=== PATIENT | female | born 1980 ===

== ENCOUNTER 2017-05-25 13:57 | Emergency (ER) | payer MEDICAID, OTHER ==
[2017-05-25 14:17] VITALS: TEMP 98.4
[2017-05-25 15:18] LABS: BASO # 0.02 K/mm3 (0.0-2.0); BASO % 0.2 % (0.0-3.0); EOS # 0.1 (0.0-0.7); GRAN # 5.64 (1.4-6.5); GRAN % 63.9 % (50.0-68.0); HEMOGLOBIN 14.2 g/dL (12.0-16.0); LYMPH # 2.6 (1.2-3.4); LYMPH % 29.2 % (22.0-35.0); MEAN CELL VOLUME 89.8 fl (80.0-105.0); MEAN CORPUSCULAR HEMOGLOBIN 29.6 pg (25.0-35.0); MEAN PLATELET VOLUME 11.6 fl (7.0-11.0); MONO # 0.5 (0.1-0.6); MONO % 5.7 % (1.0-6.0); RBC 4.79 10^6/uL (3.5-6.1); RED CELL DISTRIBUTION WIDTH 14.1 % (11.5-14.5); WHITE BLOOD COUNT 8.8 10^3/ul (4.5-11.0)
--- NOTE | 2017-05-25 15:18 | ED PDOC ---
Arrival/HPI - General Chief Complaint: Back Pain Time Seen by Provider: 05/25/17 14:43 Historian: Patient - History of Present Illness Narrative History of Present Illness (Text): 05/25/17 15:14 Patient is a 37 yo female presents to the Emergency Department complaining of back pain "for about a year". Patient states that she first began experiencing pain in her lower back approximately one year ago, gradual onset, worse with movement. States that over the past year she "gets the pain all the time" and for the past several months she feels pain in left mid/lower back, and is concerned this may be her kidneys. She denies abdominal pain. Pain not colickly. No chest pain or shortness of breath. No pain with deep breaths. Denies hematuria or dysuria or frequency. Denies rash. Patient denies pain radiating down legs. Pain not colicky in nature. Past Medical History - Infectious Disease Hx of Infectious Diseases: None - Psychiatric Hx Substance Use: No - Surgical History Hx Section: Yes Family/Social History Family/Social History: Unknown Family HX Smoking Status: Heavy Smoker > 10 Cigarettes Daily Hx Alcohol Use: Yes Frequency of alcohol use: Socially Hx Substance Use: No Allergies/Home Meds Allergies/Adverse Reactions: Allergies No Known Allergies Allergy (Verified 05/25/17 14:17) Review of Systems - Review of Systems Constitutional: absent: Fevers Eyes: absent: Vision Changes ENT: absent: Hearing Changes Respiratory: absent: SOB Cardiovascular: absent: Chest Pain Gastrointestinal: absent: Abdominal Pain, Diarrhea, Nausea, Vomiting, Appetite Changes Genitourinary Female: absent: Dysuria, Frequency, Hematuria, Urine Output Changes, Vaginal Bleeding, Vaginal Discharge Musculoskeletal: Back Pain. absent: Neck Pain Skin: absent: Rash Neurological: absent: Headache, Dizziness, Focal Weakness Endocrine: absent: Polyuria Hemo/Lymphatic: absent: Easy Bleeding Physical Exam Vital Signs Reviewed: Yes Vital Signs Temp Pulse Resp BP Pulse Ox 05/25/17 16:40 82 20 136/84 99 05/25/17 14:14 98.4 F 64 18 118/83 97 Temperature: Afebrile Appearance: Positive for: Well-Appearing, Non-Toxic - Systems Exam Head: Present: Atraumatic Pupils: Present: PERRL Extroacular Muscles: Present: EOMI Mouth: Present: Moist Mucous Membranes Pharnyx: No: ERYTHEMA Nose (Internal): Present: Normal Inspection Neck: Present: Normal Range of Motion. No: Meningeal Signs Respiratory/Chest: Present: Clear to Auscultation Cardiovascular: Present: Regular Rate and Rhythm Abdomen: No: Tenderness Back: Present: Normal Inspection, Paraspinal Tenderness. No: CVA Tenderness, Midline Tenderness, Pain with Leg Raise Lower Extremity: No: Edema, CALF TENDERNESS Neurological: Present: Normal Sensory Function Skin: Present: Warm Psychiatric: Present: Alert Medical Decision Making ED Course and Treatment: 05/26/17 07:25 Patient reports pain for a year. No known acute injury. No vesicular rash noted. She reports "kidney pain" although she is referring to pain in a specific region in her back. She denies hx of kidney failure, denies headaches or difficulty urinating, denies leg pain or swelling. Pain is worse with movement and palpable. NO midline deformity. Nv intact. Pain does not radiate to leg or buttock. No bowel or bladder incontinence. Pain not colicky. UA is unremarakble. BUN/Cr unremarkable. Labs reviewed with patient and limitations of just labs to diagnose disease were reviewed with patient, however she is comfortable with minimal pain currently. Given unremarkable UA, no fever, no nausea or vomiting, no dysuria, current symptoms not consistent with UTI although advised patient ua would be sent. Suspect back strain, have advised close follow-up with a primary physician, and patient will be discharged with naproxen. She has no abdominal pain or chest pain in the ED. - Lab Interpretations Lab Results: 05/25/17 15:00 05/25/17 15:00 Lab Results 05/25/17 15:00: Sodium 142, Potassium 4.2, Chloride 106, Carbon Dioxide 28, Anion Gap 12, BUN 13, Creatinine 0.9, Est GFR ( Amer) > 60, Est GFR (Non- Af Amer) > 60, Random Glucose 85, Calcium 9.6, Total Bilirubin 0.5, AST 24, ALT 36, Alkaline Phosphatase 66, Total Protein 7.6, Albumin 4.1, Globulin 3.5, Albumin/Globulin Ratio 1.2 05/25/17 15:00: Urine Color Yellow, Urine Appearance Clear, Urine pH 7.5, Ur Specific [place] 1.015, Urine Protein Negative, Urine Glucose (UA) Negative, Urine Ketones Negative, Urine Blood Negative, Urine Nitrate Negative, Urine Bilirubin Negative, Urine Urobilinogen 0.2, Ur Leukocyte Esterase Negative 05/25/17 15:00: WBC 8.8, RBC 4.79, Hgb 14.2, Hct 43.0, MCV 89.8, MCH 29.6, MCHC 33.0, RDW 14.1, Plt Count 284, MPV 11.6 H, Gran % 63.9, Lymph % (Auto) 29.2, [place] % (Auto) 5.7, Eos % (Auto) 1.0 L, Baso % (Auto) 0.2, Gran # 5.64, Lymph # ( Auto) 2.6, [place] # (Auto) 0.5, Eos # (Auto) 0.1, Baso # (Auto) 0.02 Disposition/Present on Arrival - Present on Arrival Any Indicators Present on Arrival: No History of DVT/PE: No History of Uncontrolled Diabetes: No Urinary Catheter: No History of Decub. Ulcer: No History Surgical Site Infection Following: None - Disposition Have Diagnosis and Disposition been Completed?: Yes Diagnosis: Back pain Disposition: HOME/ ROUTINE Disposition Time: 16:30 Patient Plan: Discharge Condition: GOOD Discharge Instructions (ExitCare): Upper Back Pain (DC) Additional Instructions: For any rash, fever, abdominal pain, chest pain, shortness of breath, nausea/ vomiting, urinary symptoms, persistent or worsening of symptoms, get rechecked. Take medication as directed, if there is worsening or CHANGE in any of your symptoms get rechecked. Prescriptions: Naproxen 250 mg PO BID PRN #10 tablet PRN Reason: Pain, Mild (1-3) Referrals: PCP,NO [Primary Care Provider] - Follow up with primary [facility] [place] [Outside] - Follow up with primary [facility] [Outside] - Follow up with primary Forms: [employer] (Polish)
[2017-05-25 15:22] LABS: ALB/GLOB RATIO 1.2 (1.1-1.8); ALBUMIN 4.1 g/dL (3.0-4.8); ALT/SGPT 36 U/L (7-56); AST/SGOT 24 U/L (14-36); BLOOD UREA NITROGEN 13 mg/dL (7-21); CALCIUM 9.6 mg/dL (8.4-10.5); GFR AFRICAN-AMERICAN > 60; GFR NON-AFRICAN AMERICAN > 60
[2017-05-25 15:29] LABS: PH,URINE 7.5 (4.7-8.0); URINE BILIRUBIN NEGATIVE (NEGATIVE); URINE BLOOD NEGATIVE (NEGATIVE); URINE GLUCOSE (UA) NEGATIVE (NEGATIVE); URINE LEUKOCYTE ESTERASE NEGATIVE Leu/uL (NEGATIVE); URINE PROTEIN NEGATIVE mg/dL (<30 mg/dL); URINE UROBILINOGEN 0.2 E.U./dL (<1 E.U./dL)
[2017-05-25 15:31] LABS: URINE APPEARANCE CLEAR (CLEAR); URINE COLOR YELLOW (YELLOW)
[2017-05-25 16:42] VITALS: BP 136/84; PULSE 82; RESP 20; O2SAT 99
== END 2017-05-25 16:40 | disposition home or self-care (01) ==
LOC: ED 13:57
DX: M54.6 Pain in thoracic spine (principal)

== ENCOUNTER 2017-08-15 15:07 | Emergency (ER) | payer MEDICAID, OTHER ==
[2017-08-15 15:17] VITALS: BMI 46.5
[2017-08-15 15:24] VITALS: O2SAT 99
[2017-08-15 16:01] VITALS: RESP 16
--- NOTE | 2017-08-15 16:14 | ED PDOC ---
Arrival/HPI - General Chief Complaint: Shortness Of Breath Time Seen by Provider: 08/15/17 15:15 - History of Present Illness Narrative History of Present Illness (Text): 37 y/o F c no PMHx p/w chest pain since last night. States pain began while she was lying down, midchest, nonradiating. States pain has been present all day, became worse today just shortly prior to arrival, worse when swallowing, felt short of breath and lightheaded. Currently feels better. Denies fever, chills, cough, nausea, vomiting, trauma, recent travel. Past Medical History - Infectious Disease Hx of Infectious Diseases: None - Psychiatric Hx Substance Use: No - Surgical History Hx Section: Yes Family/Social History Family/Social History: No Known Family HX Smoking Status: Heavy Smoker > 10 Cigarettes Daily Hx Alcohol Use: Yes Frequency of alcohol use: Socially Hx Substance Use: No Allergies/Home Meds Allergies/Adverse Reactions: Allergies No Known Allergies Allergy (Verified 05/25/17 14:17) Home Medications: Home Meds Medication Instructions Recorded Confirmed No Known Home Med 08/15/17 08/15/17 Review of Systems - Physician Review All systems were reviewed & negative as marked: Yes - Review of Systems Constitutional: absent: Fevers Gastrointestinal: absent: Abdominal Pain Physical Exam - Physical Exam Narrative Physical Exam (Text): Gen: NAD, obese female Head: NC/AT Eyes: No icterus. PERRL ENT: MMM. No pharyngeal erythema or exudates Neck: Supple Chest: Reproducible tenderness CV: Regular rate Lungs: CTA b/l Abd: Soft, NT Back: No tenderness Extremities: No swelling Skin: No rash Neuro: Alert, no focal deficit Vital Signs Temp Pulse Resp BP Pulse Ox 08/15/17 16:00 16 08/15/17 15:17 98.1 F 67 18 154/72 H 99 Medical Decision Making ED Course and Treatment: EKG NSR 63 bpm, no ST/T wave changes Aspirin 324mg administered en route by EMS. Will rule out ACS with cardiac enzymes in this constant chest pain that began yesterday. Suspect GI or MSK in origin. CXR no acute disease. Enzymes negative. Will discharge home, f/u PMD, return to ED for worsening pain , dyspnea, vomiting, dizziness, or any other problem. - Lab Interpretations Lab Results: 08/15/17 16:13 08/15/17 16:13 Lab Results 08/15/17 16:13: Sodium 142, Potassium 4.0, Chloride 105, Carbon Dioxide 26, Anion Gap 15, BUN 12, Creatinine 0.8, Est GFR ( Amer) > 60, Est GFR (Non- Af Amer) > 60, Random Glucose 97, Calcium 9.2, Total Bilirubin 0.3, AST 20, ALT 32, Alkaline Phosphatase 68, Total Creatine Kinase 91, Troponin I < 0.01, Total Protein 7.6, Albumin 4.1, Globulin 3.5, Albumin/Globulin Ratio 1.2 08/15/17 16:13: WBC 9.8, RBC 4.92, Hgb 14.5, Hct 42.8, MCV 87.0, MCH 29.5, MCHC 33.9, RDW 13.9, Plt Count 272, MPV 11.1 H, Gran % 66.6, Lymph % (Auto) 27.7, [place] % (Auto) 4.7, Eos % (Auto) 0.7 L, Baso % (Auto) 0.3, Gran # 6.53 H, Lymph # (Auto) 2.7, [place] # (Auto) 0.5, Eos # (Auto) 0.1, Baso # (Auto) 0.03 - RAD Interpretation Radiology Orders: 08/15/17 15:51 CHEST PORTABLE [RAD] Stat Disposition/Present on Arrival - Present on Arrival Any Indicators Present on Arrival: No History of DVT/PE: No History of Uncontrolled Diabetes: No Urinary Catheter: No History of Decub. Ulcer: No History Surgical Site Infection Following: None - Disposition Have Diagnosis and Disposition been Completed?: Yes Diagnosis: Chest pain Disposition: HOME/ ROUTINE Disposition Time: 16:54 Patient Plan: Discharge Condition: STABLE Discharge Instructions (ExitCare): Chest Pain (ED) Referrals: [facility] at [facility] [place] [Outside] - Follow up with primary Forms: [employer] (Sinhala)
[2017-08-15 16:30] LABS: ALB/GLOB RATIO 1.2 (1.1-1.8); ALBUMIN 4.1 g/dL (3.0-4.8); ALT/SGPT 32 U/L (7-56); AST/SGOT 20 U/L (14-36); BLOOD UREA NITROGEN 12 mg/dL (7-21); CALCIUM 9.2 mg/dL (8.4-10.5); GFR AFRICAN-AMERICAN > 60; GFR NON-AFRICAN AMERICAN > 60
[2017-08-15 16:40] LABS: BASO # 0.03 K/mm3 (0.0-2.0); BASO % 0.3 % (0.0-3.0); EOS # 0.1 (0.0-0.7); EOS % 0.7 % (1.5-5.0); GRAN # 6.53 (1.4-6.5); GRAN % 66.6 % (50.0-68.0); HEMOGLOBIN 14.5 g/dL (12.0-16.0); LYMPH # 2.7 (1.2-3.4); LYMPH % 27.7 % (22.0-35.0); MEAN CORPUSCULAR HEMOGLOBIN 29.5 pg (25.0-35.0); MEAN CORPUSCULAR HGB CONC 33.9 g/dl (31.0-37.0); MEAN PLATELET VOLUME 11.1 fl (7.0-11.0); MONO # 0.5 (0.1-0.6); MONO % 4.7 % (1.0-6.0); RBC 4.92 10^6/uL (3.5-6.1); RED CELL DISTRIBUTION WIDTH 13.9 % (11.5-14.5); WHITE BLOOD COUNT 9.8 10^3/ul (4.5-11.0)
[2017-08-15 16:41] LABS: TROPONIN I < 0.01 ng/mL
[2017-08-15 17:08] VITALS: BP 148/72; PULSE 75; TEMP 97.8
--- NOTE | 2017-08-15 17:08 | RAD ---
HISTORY: Chest pain. COMPARISON: No prior. FINDINGS: LUNGS: No active pulmonary disease. PLEURA: No significant pleural effusion identified, no pneumothorax apparent. CARDIOVASCULAR: Normal. OSSEOUS STRUCTURES: No significant abnormalities. VISUALIZED UPPER ABDOMEN: Normal. OTHER FINDINGS: None. IMPRESSION: No active disease.
--- NOTE | 2017-08-15 22:29 | CARD ---
APPROVED REPORT EKG Measurement Heart [id number] PA 146P22 [id number] <Conclusion> Normal sinus rhythm Normal ECG
== END 2017-08-15 17:05 | disposition home or self-care (01) ==
LOC: ED 15:07
DX: R07.9 Chest pain, unspecified (principal)

== ENCOUNTER 2017-09-20 20:42 | Emergency (ER) | payer OTHER ==
[2017-09-20 20:42] VITALS: BMI 46.5
[2017-09-20 20:51] VITALS: RESP 16; TEMP 99; O2SAT 98
[2017-09-20] MEDS ORDERED: Alum-Mag Hydrox-Simethicone Susp (30 mL) PO STA (21:03)
[2017-09-20] MEDS ORDERED: Lidocaine 2% Viscous 100 ml PO STA (21:03)
--- NOTE | 2017-09-20 21:03 | ED PDOC ---
Arrival/HPI - General Chief Complaint: ENT Problem Time Seen by Provider: 09/20/17 20:54 Historian: Patient - History of Present Illness Narrative History of Present Illness (Text): 09/20/17 20:55 37 year old female, pmh including chest pain, nkda, complaining of chest pain x 1 week with no fall or trauma. Burning pain when swallowing on the epigastric region, no reflux, no fever or chills, no coughing and no plueritic pain, no history of leg or calf pain/swelling, no exertional chest pain, no night sweat, no other medical or psychological complaints. Past Medical History - Provider Review Nursing Documentation Reviewed: Yes - Infectious Disease Hx of Infectious Diseases: None - Psychiatric Hx Psychophysiologic Disorder: No Hx Substance Use: No - Surgical History Hx Section: Yes Family/Social History - Physician Review Nursing Documentation Reviewed: Yes Family/Social History: Unknown Family HX Smoking Status: Heavy Smoker > 10 Cigarettes Daily Hx Alcohol Use: Yes Hx Substance Use: No Allergies/Home Meds Allergies/Adverse Reactions: Allergies No Known Allergies Allergy (Verified 09/20/17 20:46) Review of Systems - Review of Systems Constitutional: absent: Fatigue, Fevers Eyes: absent: Vision Changes ENT: absent: Hearing Changes Respiratory: absent: SOB, Cough Cardiovascular: Chest Pain Gastrointestinal: absent: Abdominal Pain, Diarrhea, Nausea, Vomiting Skin: absent: Rash, Pruritis Neurological: absent: Headache, Dizziness Psychiatric: absent: Anxiety, Depression Physical Exam Vital Signs Reviewed: Yes Vital Signs Temp Pulse Resp BP Pulse Ox 09/20/17 20:46 99.0 F 83 16 109/74 98 Temperature: Afebrile Blood Pressure: Normal Pulse: Regular Respiratory Rate: Normal Appearance: Positive for: Well-Appearing, Non-Toxic, Comfortable Pain Distress: Mild Mental Status: Positive for: Alert and Oriented X 3 - Systems Exam Head: Present: Atraumatic, Normocephalic Pupils: Present: PERRL Extroacular Muscles: Present: EOMI Conjunctiva: Present: Normal Mouth: Present: Moist Mucous Membranes Neck: Present: Normal Range of Motion Respiratory/Chest: Present: Clear to Auscultation, Good Air Exchange. No: Respiratory Distress, Accessory Muscle Use Cardiovascular: Present: Regular Rate and Rhythm, Normal S1, S2. No: Murmurs Abdomen: Present: Tenderness (+epigastric tenderness, negative king signs, negative mcburney point tenderness). No: Distention, Peritoneal Signs, Rebound , Guarding Back: Present: Normal Inspection Upper Extremity: Present: Normal Inspection. No: Cyanosis, Edema Lower Extremity: Present: Normal Inspection. No: Edema Neurological: Present: GCS=15, CN II-XII Intact, Speech Normal Skin: Present: Warm, Dry, Normal Color. No: Rashes Psychiatric: Present: Alert, Oriented x 3, Normal Insight, Normal Concentration Medical Decision Making ED Course and Treatment: 09/20/17 21:10 Differential: PR/STEMI vs. gastritis vs. pneumonia vs. pancreatitis vs. gerd -labs -ekg -cxr -GI cocktail -Observe and reassess 09/20/17 23:09 -Urine hcg is negative. -EKG: NSR @ 75 BPM, no ST elevation or depression, no T wave inversion. -Chest xray show Lungs: No evidence of focal air space disease/consolidation. -HEART score is 1 unlikely CAD in nature, symptoms over 24 hours and troponin is negative, ACS is unlikely -Labs show no acute findings except wbc 13.1, afebrile, likely pain and stress induced, advised the patient to repeat cbc in 1 week -Pt. feels well, resting on the bed, playing on the cellphone -All lab results discussed with the patient and differential, advised GI follow up with endoscopy and r/o h.pylori as well. -Discharge home pepcid, stay hydrated, soft food diet, avoid acidic/sour/spicy food, avoid carbonated/coffee/caffeinated drink, follow up with your own pmd and GI within 2 days for endoscopy if needed, return to the ER for any new or worsening signs or symptoms. - Lab Interpretations Lab Results: 09/20/17 21:41 09/20/17 21:41 Lab Results 09/20/17 21:41: WBC 13.1 H D, RBC 4.82, Hgb 14.3, Hct 42.0, MCV 87.1, MCH 29.7, MCHC 34.0, RDW 14.0, Plt Count 288, MPV 10.6, Gran % 61.5, Lymph % (Auto) 31.0, [place] % (Auto) 6.5 H, Eos % (Auto) 0.8 L, Baso % (Auto) 0.2, Gran # 8.05 H, Lymph # (Auto) 4.1 H, [place] # (Auto) 0.9 H, Eos # (Auto) 0.1, Baso # (Auto) 0.02 09/20/17 21:41: Sodium 141, Potassium 4.3, Chloride 104, Carbon Dioxide 26, Anion Gap 15, BUN 16, Creatinine 0.8, Est GFR ( Amer) > 60, Est GFR (Non- Af Amer) > 60, Random Glucose 80, Calcium 9.2, Total Bilirubin 0.2, AST 21, ALT 23, Alkaline Phosphatase 76, Lactate Dehydrogenase 389, Total Creatine Kinase 94 , Troponin I < 0.01, Total Protein 7.6, Albumin 4.2, Globulin 3.4, Albumin/ Globulin Ratio 1.3, Lipase 75 - RAD Interpretation Radiology Orders: 09/20/17 21:03 CHEST PORTABLE [RAD] Stat Lungs: No evidence of focal air space disease/consolidation. Pleural space: Normal. No pneumothorax. Heart/Mediastinum: Normal. No cardiomegaly. Bones/joints: Unremarkable for age. IMPRESSION: No evidence of focal air space disease/consolidation. Thank you for allowing us to participate in the care of your patient. Dictated and Authenticated by: Bonifacio Trevino MD 09/20/2017 10:32 PM Eastern Time ([place] & [place]) Management Architect: Radiologist - Medication Orders Current Medication Orders: Discontinued Medications Al Hydrox/Mg Hydrox/Simethicone (Maalox Plus 30 Ml) 30 ml PO STAT STA Stop: 09/20/17 21:04 Last Admin: 09/20/17 21:33 Dose: 30 ml Dicyclomine HCl (Bentyl) 20 mg PO STAT STA Stop: 09/20/17 21:04 Last Admin: 09/20/17 21:31 Dose: 20 mg Lidocaine HCl (Lidocaine 2% Viscous) 15 ml MM STAT STA Stop: 09/20/17 21:08 Last Admin: 09/20/17 21:33 Dose: 15 ml - PA / PROGRAM MANUFACTURING LEADER / Resident Statement /DO has reviewed & agrees with the documentation as recorded. Disposition/Present on Arrival - Present on Arrival Any Indicators Present on Arrival: No History of DVT/PE: No History of Uncontrolled Diabetes: No Urinary Catheter: No History of Decub. Ulcer: No History Surgical Site Infection Following: None - Disposition Have Diagnosis and Disposition been Completed?: Yes Diagnosis: Atypical chest pain Disposition: HOME/ ROUTINE Disposition Time: 21:13 Patient Plan: Discharge Patient Problems: Current Active Problems Problem Status Onset Atypical chest pain Acute Condition: GOOD Discharge Instructions (ExitCare): Chest Pain (ED) Additional Instructions: Discharge home pepcid, stay hydrated, soft food diet, avoid acidic/sour/spicy food, avoid carbonated/coffee/caffeinated drink, follow up with your own pmd and GI/online advertising manager within 2 days for endoscopy if needed, return to the ER for any new or worsening signs or symptoms. Prescriptions: Famotidine [Pepcid] 20 mg PO BID #20 tab Referrals: Xochilt Mendiola MD [Medical Doctor] - Follow up with primary Andrew Ag MD [Staff Provider] - Follow up with primary Forms: WORK NOTE
[2017-09-20 21:48] LABS: BASO # 0.02 K/mm3 (0.0-2.0); BASO % 0.2 % (0.0-3.0); EOS # 0.1 (0.0-0.7); EOS % 0.8 % (1.5-5.0); GRAN # 8.05 (1.4-6.5); GRAN % 61.5 % (50.0-68.0); HEMOGLOBIN 14.3 g/dL (12.0-16.0); LYMPH # 4.1 (1.2-3.4); MEAN CELL VOLUME 87.1 fl (80.0-105.0); MEAN CORPUSCULAR HEMOGLOBIN 29.7 pg (25.0-35.0); MEAN PLATELET VOLUME 10.6 fl (7.0-11.0); MONO # 0.9 (0.1-0.6); MONO % 6.5 % (1.0-6.0); RBC 4.82 10^6/uL (3.5-6.1); WHITE BLOOD COUNT 13.1 10^3/ul (4.5-11.0)
[2017-09-20 21:54] LABS: ALB/GLOB RATIO 1.3 (1.1-1.8); ALBUMIN 4.2 g/dL (3.0-4.8); ALT/SGPT 23 U/L (7-56); AST/SGOT 21 U/L (14-36); BLOOD UREA NITROGEN 16 mg/dL (7-21); CALCIUM 9.2 mg/dL (8.4-10.5); GFR AFRICAN-AMERICAN > 60; GFR NON-AFRICAN AMERICAN > 60; LIPASE 75 U/L (23-300)
[2017-09-20 22:06] LABS: TROPONIN I < 0.01 ng/mL
[2017-09-21 00:13] VITALS: BP 120/69; PULSE 80
--- NOTE | 2017-09-21 09:24 | CARD ---
APPROVED REPORT EKG Measurement Heart [id number] CT 150P30 [id number] <Conclusion> Normal sinus Low voltage QRS No change
--- NOTE | 2017-09-21 09:59 | RAD ---
HISTORY: Medical clearance. Chest pain COMPARISON: 08/15/2017 FINDINGS: LUNGS: No active pulmonary disease. PLEURA: No significant pleural effusion identified, no pneumothorax apparent. CARDIOVASCULAR: Normal. OSSEOUS STRUCTURES: No significant abnormalities. VISUALIZED UPPER ABDOMEN: Normal. OTHER FINDINGS: None. IMPRESSION: No active disease. No significant interval change compared to the prior examination(s).
== END 2017-09-20 23:15 | disposition home or self-care (01) ==
LOC: ED 20:42
DX: R07.89 Other chest pain (principal); F17.210 Nicotine dependence, cigarettes, uncomplicated

== ENCOUNTER 2018-02-11 11:44 | Emergency (ER) | payer OTHER, MEDICAID ==
[2018-02-11 12:30] VITALS: BMI 45.1
[2018-02-11 12:31] VITALS: RESP 18
[2018-02-11] MEDS ORDERED: Sodium Chloride 0.9% 1,000 ML IV STA (12:40)
--- NOTE | 2018-02-11 12:53 | ED PDOC ---
Arrival/HPI - General Chief Complaint: Abdominal Pain Historian: Patient - History of Present Illness Narrative History of Present Illness (Text): 02/11/18 12:51 37 y/o female, chronic smoker, nkda, no significant pmh, c/o coughing on and off x 1 month with nausea/vomiting/diarrhea started yesterday. Pt. stated she has been having on off runny nose and cough x 1 month, +sick contact at home, noted to have nausea/vomiting/diarrhea yesterday, no recent traveling, no night sweat, no numbness or tingling, no fever or chills, no urinary symptoms, no other medical or psychological complaints. Past Medical History - Provider Review Nursing Documentation Reviewed: Yes - Infectious Disease Hx of Infectious Diseases: None - Psychiatric Hx Psychophysiologic Disorder: No Hx Substance Use: No - Surgical History Hx Section: Yes (1) Family/Social History - Physician Review Nursing Documentation Reviewed: Yes Family/Social History: Unknown Family HX Smoking Status: Light Smoker < 10 Cigarettes Daily Hx Alcohol Use: Yes Frequency of alcohol use: Socially Hx Substance Use: No Allergies/Home Meds Allergies/Adverse Reactions: Allergies No Known Allergies Allergy (Verified 02/11/18 12:29) Review of Systems - Review of Systems Constitutional: absent: Fatigue, Fevers Eyes: absent: Vision Changes ENT: Rhinorrhea. absent: Hearing Changes Respiratory: Cough, Sputum. absent: SOB, Wheezing Cardiovascular: absent: Chest Pain Gastrointestinal: Diarrhea, Nausea, Vomiting. absent: Abdominal Pain Genitourinary Female: absent: Dysuria, Frequency, Hematuria, Urine Output Changes, Vaginal Bleeding, Vaginal Discharge Skin: absent: Rash, Pruritis Neurological: absent: Headache, Dizziness Psychiatric: absent: Anxiety, Depression, Suicidal Ideation Physical Exam Vital Signs Reviewed: Yes Vital Signs Temp Pulse Resp BP Pulse Ox 02/11/18 12:30 98.6 F 83 18 105/71 95 Temperature: Afebrile Blood Pressure: Normal Pulse: Regular Respiratory Rate: Normal Appearance: Positive for: Well-Appearing, Non-Toxic, Comfortable Pain Distress: None Mental Status: Positive for: Alert and Oriented X 3 - Systems Exam Head: Present: Atraumatic, Normocephalic Pupils: Present: PERRL Extroacular Muscles: Present: EOMI Conjunctiva: Present: Normal Mouth: Present: Moist Mucous Membranes Nose (External): Present: Atraumatic. No: Abrasion, Contusion, Laceration Nose (Internal): Present: Normal Inspection, No Active Bleeding, Rhinorrhea. No: Septal Hematoma, Epistaxis Neck: Present: Normal Range of Motion, Trachea Midline. No: Meningeal Signs, MIDLINE TENDERNESS, Paraspinal Tenderness, Lymphadenopathy Respiratory/Chest: Present: Clear to Auscultation, Good Air Exchange. No: Respiratory Distress, Accessory Muscle Use Cardiovascular: Present: Regular Rate and Rhythm, Normal S1, S2. No: Murmurs Abdomen: Present: Normal Bowel Sounds. No: Tenderness, Distention, Peritoneal Signs, Rebound, Guarding, McBurney's Point Tender, Rovsing's Sign Present Back: Present: Normal Inspection Upper Extremity: Present: Normal Inspection. No: Cyanosis, Edema Lower Extremity: Present: Normal Inspection. No: Edema Neurological: Present: GCS=15, CN II-XII Intact, Speech Normal Skin: Present: Warm, Dry, Normal Color. No: Rashes Psychiatric: Present: Alert, Oriented x 3, Normal Insight, Normal Concentration Medical Decision Making ED Course and Treatment: 02/11/18 12:54 -Labs -Chest xray -IVF/pepcid/reglan -Observe and reassess 02/11/18 14:39 -Urine hcg is negative -Labs is non significant -Mg within normal limit -Lipase within normal limit -CXR show No active disease -Pt. feels well, tolerating po solid and fluid, discussed about the labs/radiology result, advised stop smoking and outpatient pmd follow up within 2 days. -Discharge home with zithromax, pepcid, prednisone, albuterol MDI, bromfed dm, zofran, avoid dairy diet until symptoms resolved, avoid smoking, follow up with your own pmd and specialists within 2 days, return to the ER for any new or worsening signs or symptoms. - RAD Interpretation Radiology Orders: 02/11/18 12:50 CHEST PORTABLE [RAD] Stat Date of service: 02/11/2018 HISTORY: mild rhonchi RLL, smoker COMPARISON: 09/20/2017 FINDINGS: LUNGS: No active pulmonary disease. PLEURA: No significant pleural effusion identified, no pneumothorax apparent. CARDIOVASCULAR: No aortic atherosclerotic calcification present. Normal cardiac size. No pulmonary vascular congestion. OSSEOUS STRUCTURES: No significant abnormalities. VISUALIZED UPPER ABDOMEN: Normal. OTHER FINDINGS: None. IMPRESSION: No active disease. Utility Tender Carding: Radiologist - Medication Orders Current Medication Orders: Sodium Chloride (Sodium Chloride 0.9%) 1,000 mls @ 999 mls/hr IV .Q1H1M STA Stop: 02/11/18 13:40 Discontinued Medications Famotidine (Pepcid) 20 mg IVP STAT STA Stop: 02/11/18 12:41 Metoclopramide HCl (Reglan) 10 mg IVP STAT STA Stop: 02/11/18 12:41 - PA / BEEF TRIMMER / Resident Statement MD/DO has reviewed & agrees with the documentation as recorded. Disposition/Present on Arrival - Present on Arrival Any Indicators Present on Arrival: No History of DVT/PE: No History of Uncontrolled Diabetes: No Urinary Catheter: No History of Decub. Ulcer: No History Surgical Site Infection Following: None - Disposition Have Diagnosis and Disposition been Completed?: Yes Diagnosis: Bronchitis, Gastroenteritis Disposition: HOME/ ROUTINE Disposition Time: 14:42 Patient Plan: Discharge Condition: IMPROVED Additional Instructions: -Discharge home with zithromax, pepcid, prednisone, albuterol MDI, bromfed dm, zofran, avoid dairy diet until symptoms resolved, avoid smoking, follow up with your own pmd and specialists within 2 days, return to the ER for any new or worsening signs or symptoms. Prescriptions: Albuterol HFA [Ventolin HFA 90 mcg/actuation (8 g)] 2 puff IH [id number] PRN #1 inh PRN Reason: Other Azithromycin [Zithromax] 250 mg PO DAILY #6 tab Brompheniramine/Pseudoephed/Dm [Bromfed Dm Cough 118 ml] 10 ml PO QID PRN #200 ml PRN Reason: Other Famotidine [Pepcid] 20 mg PO BID #20 tab Ondansetron ODT [Zofran ODT] 4 mg PO TID PRN #12 odt PRN Reason: Other Prednisone 50 mg PO DAILY #5 tablet Referrals: Debi Shaikh MD [Primary Care Provider] - Follow up with primary Andrea Marshall MD [Staff Provider] - Follow up with primary Andrew Cordova MD [Staff Provider] - Follow up with primary Forms: [employer] (Italian), WORK NOTE
[2018-02-11 13:38] LABS: BASO # 0.01 K/mm3 (0.0-2.0); BASO % 0.1 % (0.0-3.0); EOS # 0.1 (0.0-0.7); EOS % 1.1 % (1.5-5.0); GRAN # 4.71 (1.4-6.5); GRAN % 64.8 % (50.0-68.0); HEMOGLOBIN 14.3 g/dL (12.0-16.0); LYMPH % 27.3 % (22.0-35.0); MEAN CELL VOLUME 88.7 fl (80.0-105.0); MEAN CORPUSCULAR HEMOGLOBIN 29.3 pg (25.0-35.0); MEAN PLATELET VOLUME 10.7 fl (7.0-11.0); MONO # 0.5 (0.1-0.6); MONO % 6.7 % (1.0-6.0); RBC 4.88 10^6/uL (3.5-6.1); RED CELL DISTRIBUTION WIDTH 13.6 % (11.5-14.5); WHITE BLOOD COUNT 7.3 10^3/uL (4.5-11.0)
[2018-02-11 13:45] LABS: ALB/GLOB RATIO 1.1 (1.1-1.8)
[2018-02-11 13:49] LABS: ALBUMIN 3.9 g/dL (3.0-4.8); ALT/SGPT 26 U/L (7-56); AST/SGOT 22 U/L (14-36); BLOOD UREA NITROGEN 12 mg/dL (7-21); CALCIUM 8.8 mg/dL (8.4-10.5); GFR NON-AFRICAN AMERICAN > 60; LIPASE 50 U/L (23-300)
--- NOTE | 2018-02-11 14:29 | RAD ---
Date of service: 02/11/2018 HISTORY: mild rhonchi RLL, smoker COMPARISON: 09/20/2017 FINDINGS: LUNGS: No active pulmonary disease. PLEURA: No significant pleural effusion identified, no pneumothorax apparent. CARDIOVASCULAR: No aortic atherosclerotic calcification present. Normal cardiac size. No pulmonary vascular congestion. OSSEOUS STRUCTURES: No significant abnormalities. VISUALIZED UPPER ABDOMEN: Normal. OTHER FINDINGS: None. IMPRESSION: No active disease.
[2018-02-11 14:54] VITALS: BP 110/72; PULSE 88; TEMP 98.3; O2SAT 98
== END 2018-02-11 14:54 | disposition home or self-care (01) ==
LOC: ED 11:44
DX: J40 Bronchitis, not specified as acute or chronic (principal); K52.9 Noninfective gastroenteritis and colitis, unspecified; F17.210 Nicotine dependence, cigarettes, uncomplicated
CPT/HCPCS: 71045; 80053; 83690; 83735; 85025; 96374; 96375; 99281; J2765; J7030